=== PATIENT | male | born 1950 | race Caucasian/White ===

== ENCOUNTER 2025-01-14 07:15 | Day surgery (SDC) | payer OTHER ==
[2025-01-12 14:52] LABS: Absolute Eosinophils 0.2 K/uL (0-0.5); Absolute Lymphocytes (CBC) 1.3 K/uL (0.7-4.9); Absolute Monocytes 0.7 K/uL (0.1-1.3); Absolute Neutrophil 6.5 K/uL (1.8-8.0); Basophils % 0.6 % (0-1.3); Eosinophils % 2.6 % (0-4.4); Hematocrit 41.3 % (39.6-49.0); Hemoglobin 13.9 g/dL (13.6-17.9); Lymphocytes % 14.6 % (15.3-44.8); MCH 30.7 pg (27.0-35.0); MCHC 33.6 g/dL (32.0-36.0); MCV 91.6 fL (80-100); MPV 10.8 fL (7.6-11.3); Monocytes % 7.6 % (3.3-12.3); Neutrophils % 74.6 % (41.7-73.7); Platelets 234 thou/uL (152-406); RBC Red Blood Cell Count 4.51 M/uL (4.33-5.43); Red Cell Distribution Width 16.6 % (12.1-15.2)
[2025-01-12 14:58] LABS: PT Prothrombin Time 12.8 SECONDS (10-13.0); PTT, Activated Partial Thromb 35.3 SECONDS (27.2-37.4); Protime INR 1.13
[2025-01-12 15:02] LABS: Anion Gap 6.4 mEq/L (5.0-15.0); Potassium 4.4 mEq/L (3.5-5.1)
[2025-01-14] MEDS ORDERED: LIDOCAINE 1% MPF 5 ML VIAL ONE (07:55)
[2025-01-14] MEDS ORDERED: propofoL 200 MG/20 ML VIAL IV ONE (07:55)
[2025-01-14] MEDS: NA CHLORIDE 0.9% 1,000 ML ONE (08:12)
[2025-01-14] MEDS ORDERED: GLYCOPYRROLATE 0.2 MG/ML SYR ONE (08:56)
[2025-01-14] MEDS ORDERED: Phenylephrine HCl 10 MG/ML 1 ML VIAL ONE (08:57)
[2025-01-14 09:40] VITALS: BP 107/66; TEMP 97.2; O2SAT 98
--- NOTE | 2025-01-14 11:59 | EKG ---
Test Date: 2025-01-12 Test Time: 13:23:20 [employer]: POLA MEASUREMENT RESULTS: Intervals: Rate: 47 CO: QRSD: 86 QT: 442 QTc: 391 [place]: P: CO: QRS: -49 T: 11 INTERPRETIVE STATEMENTS: Junctional rhythm Left axis deviation Inferior infarct, age undetermined Anterior infarct, age undetermined Abnormal ECG No previous ECG available for comparison Electronically Signed On 01-14-25 11:56:04 CDT by Da Moise
== END 2025-01-14 10:11 | disposition home or self-care (01) ==
LOC: OR 07:15
PROVIDERS: ATTEND Internal Medicine Gastroenterology
PROC: 0DBL8ZX Excision of Transverse Colon, Via Natural or Artificial Opening Endoscopic, Diagnostic (ICD-10-PCS; principal; 2025-01-14 08:30)
DX: Z12.11 Encounter for screening for malignant neoplasm of colon (principal); Z86.0100 Personal history of colon polyps, unspecified; Z80.0 Family history of malignant neoplasm of digestive organs; D12.3 Benign neoplasm of transverse colon; K57.90 Diverticulosis of intestine, part unspecified, without perforation or abscess without bleeding
CPT/HCPCS: 93005; 85025; 80048; 36415; 85610; 82947; 88305; 85730; 45384; J2704; J2003; J2371; J7030